=== PATIENT | female | born 1970 | race Caucasian/White ===

== ENCOUNTER 2016-10-01 21:02 | Emergency (ER) | payer MEDICAID, OTHER, SELFPAY ==
[~2016-10-01] VITALS: Ht 154.9 cm; Wt 61.9 kg
[2016-10-01 21:04] VITALS: BP 133/81
[2016-10-01] MEDS ORDERED: FAMOTIDINE 20 MG TABLET ONE (22:13)
[2016-10-01] MEDS ORDERED: DIPHENHYDRAMINE 25 MG CAPSULE ONE (22:13)
[2016-10-01] MEDS ORDERED: DIPHENHYDRAMINE 25 MG CAPSULE PO ONE (22:30)
[2016-10-01] MEDS ORDERED: FAMOTIDINE 20 MG TABLET PO ONE (22:30)
== END 2016-10-01 22:38 | disposition home or self-care (01) ==
LOC: ED 22:32
DX: T78.3XXA Angioneurotic edema, initial encounter (principal); L50.0 Allergic urticaria; Y92.9 Unspecified place or not applicable
CPT/HCPCS: 99284; J7512; Q0163

== ENCOUNTER 2017-09-02 21:50 | Emergency (ER) | payer MEDICAID ==
[~2017-09-02] VITALS: Ht 157.5 cm; Wt 65.0 kg
[2017-09-02 21:52] VITALS: BP 138/88
[2017-09-02] MEDS ORDERED: FAMOTIDINE 20 MG TABLET PO ONE (22:30)
[2017-09-02] MEDS ORDERED: DIPHENHYDRAMINE 25 MG CAPSULE PO ONE (22:30)
[2017-09-02] MEDS ORDERED: DIPHENHYDRAMINE 50 MG CAPSULE ONE (22:34)
[2017-09-02] MEDS ORDERED: FAMOTIDINE 20 MG TABLET ONE (22:34)
== END 2017-09-02 22:53 | disposition home or self-care (01) ==
LOC: ED 22:47
DX: T78.3XXA Angioneurotic edema, initial encounter (principal)
CPT/HCPCS: 99284; J7512; Q0163

== ENCOUNTER 2018-01-06 23:57 | Emergency (ER) | payer MEDICAID ==
[~2018-01-06] VITALS: Ht 152.4 cm; Wt 64.0 kg
[2018-01-06 23:59] VITALS: BP 148/93
[2018-01-07] MEDS ORDERED: KETOROLAC 30 MG/1 ML ONE (00:28)
[2018-01-07] MEDS ORDERED: DIAZEPAM 5 MG TABLET ONE (00:28)
[2018-01-07] MEDS ORDERED: DIAZEPAM 5 MG TABLET PO ONE (00:30)
[2018-01-07] MEDS ORDERED: KETOROLAC 30 MG/1 ML IM ONE (00:30)
== END 2018-01-07 02:27 | disposition home or self-care (01) ==
LOC: ED 01-07 00:26
DX: S16.1XXA Strain of muscle, fascia and tendon at neck level, initial encounter (principal); S39.012A Strain of muscle, fascia and tendon of lower back, initial encounter; V79.59XA Passenger on bus injured in collision with other motor vehicles in traffic accident, initial encounter; Y93.89 Activity, other specified; Y92.89 Other specified places as the place of occurrence of the external cause; Y99.8 Other external cause status
CPT/HCPCS: 72020; 72050; 72110; 96372; 99284; J1885

== ENCOUNTER 2018-01-18 22:59 | Emergency (ER) | payer BC, MEDICAID, OTHER ==
[~2018-01-18] VITALS: Ht 154.9 cm; Wt 63.3 kg
[2018-01-18 23:02] VITALS: BP 145/84
[2018-01-18] MEDS ORDERED: DIAZEPAM 5 MG TABLET PO ONE (23:30)
[2018-01-18] MEDS ORDERED: KETOROLAC 30 MG/1 ML IM ONE (23:30)
[2018-01-18] MEDS ORDERED: DIAZEPAM 5 MG TABLET ONE (23:31)
[2018-01-18] MEDS ORDERED: KETOROLAC 30 MG/1 ML ONE (23:31)
== END 2018-01-18 23:45 | disposition home or self-care (01) ==
LOC: ED 23:39
DX: S16.1XXA Strain of muscle, fascia and tendon at neck level, initial encounter (principal); S39.012A Strain of muscle, fascia and tendon of lower back, initial encounter; F17.210 Nicotine dependence, cigarettes, uncomplicated; X50.1XXA Overexertion from prolonged static or awkward postures, initial encounter; Y99.0 Civilian activity done for income or pay; Y92.69 Other specified industrial and construction area as the place of occurrence of the external cause; Y93.89 Activity, other specified
CPT/HCPCS: 96372; 99283; J1885

== ENCOUNTER 2018-06-21 10:33 | Emergency (ER) | payer MEDICAID ==
[~2018-06-21] VITALS: Ht 152.4 cm; Wt 66.5 kg
[2018-06-21 10:34] VITALS: BP 160/90
[2018-06-21] MEDS ORDERED: DIPHENHYDRAMINE 25 MG CAPSULE ONE (10:54)
[2018-06-21] MEDS ORDERED: DIPHENHYDRAMINE 25 MG CAPSULE PO ONE (11:00)
== END 2018-06-21 11:00 | disposition home or self-care (01) ==
LOC: ED 10:51
DX: L24.9 Irritant contact dermatitis, unspecified cause (principal); F17.200 Nicotine dependence, unspecified, uncomplicated
CPT/HCPCS: 99283; Q0163

== ENCOUNTER 2018-08-21 02:47 | Emergency (ER) | payer MEDICAID ==
[~2018-08-21] VITALS: Ht 154.9 cm; Wt 68.9 kg
[2018-08-21 02:51] VITALS: BP 160/91
[2018-08-21] MEDS ORDERED: DIPHENHYDRAMINE 25 MG CAPSULE ONE (03:18)
--- NOTE | 2018-08-21 03:24 | NUR ---
PT HERE FOR REDNESS TO NECK AND FACE. VSS. PT MEDICATED. CALL LIGHT IN REACH
[2018-08-21] MEDS ORDERED: DIPHENHYDRAMINE 25 MG CAPSULE PO ONE (03:30)
--- NOTE | 2018-08-21 03:37 | NUR ---
Patient given discharge instructions and they have confirmed that they understand the instructions. Patient ambulatory with steady gait.
== END 2018-08-21 03:40 | disposition home or self-care (01) ==
LOC: ED 03:31
DX: L23.9 Allergic contact dermatitis, unspecified cause (principal); L20.9 Atopic dermatitis, unspecified; F17.200 Nicotine dependence, unspecified, uncomplicated; Z90.710 Acquired absence of both cervix and uterus; Z86.19 Personal history of other infectious and parasitic diseases
CPT/HCPCS: 99283; J7512; Q0163